=== PATIENT | female | born 1955 | race Caucasian/White ===

== ENCOUNTER 2018-01-20 08:34 | Emergency (ER) | payer BC ==
[2018-01-20 08:44] VITALS: BP 145/86
--- NOTE | 2018-01-20 09:30 | UC ---
Complaint Female HPI - HPI Summary HPI Summary: Pt is a 62 y/o F c/o increased bowel movement frequency and just does not feel right onsetting Thursday. She notes that she woke up Thursday morning with unusual increased bowel movement frequency. Assoc Sx: Increase urinary frequency, gassy , KEMP, diarrhea, chills, sore throat, brain foggy. Denies: melena, body/muscle/ joint aches, cough, chest congestion, epigastric abd pain, vaginal discharge. Pt notes Does not feel like Diveticulitis. She also says her diet has not changed much and stool has been "hemstitcher" colored. - History Of Current Complaint Chief Complaint: UCGeneralIllness Stated Complaint: HEADACHE NAUSEA DIARRHEA Time Seen by Provider: 01/20/18 09:16 Hx Obtained From: Patient Onset/Duration: Sudden Onset - Upon waking, Lasting Days Severity Currently: Mild Pain Intensity: 2 Pain Scale Used: 0-10 Numeric Associated Signs And Symptoms: Negative: Fever, Vaginal Bleeding/Discharge, Vaginal Discharge - Allergies/Home Medications Allergies/Adverse Reactions: Allergies Allergy/AdvReac Type Severity Reaction Status Date / Time ciprofloxacin [From Cipro] Allergy Rash Verified 01/20/18 08:45 metronidazole [From Flagyl] Allergy Rash Verified 01/20/18 08:45 Sulfa (Sulfonamide Allergy Rash Verified 01/20/18 08:45 Antibiotics) PMH/Surg Hx/FS Hx/Imm Hx Endocrine History: Other - Neg: DM Other Endocrine History: . Cardiovascular History: Other - Neg: HTN, CAD Other Cardiovascular History: . - Surgical History Surgical History: Yes Surgery Procedure, Year, and Place: c section 1987, rt knee , rt ankle, rt breast biopsy - Family History Known Family History: Negative: Cardiac Disease, Hypertension, Diabetes - Social History Occupation: Retired Lives: With Family Alcohol Use: Weekly Alcohol Amount: wine Substance Use Type: None Smoking Status (MU): Never Smoked Tobacco Review of Systems Constitutional: Negative, Chills ENT: Sore Throat Respiratory: Negative - Cough, C congestion Gastrointestinal: Negative - Epigastric abd pain, Diarrhea Genitourinary: Negative - Vaginal discharge, melena, Frequency - increased Musculoskeletal: Negative - Body/Muscle/Joint aches, Other: Neurological: Headache, Other - "Foggy brain" All Other Systems Reviewed And Are Negative: Yes Physical Exam - Summary Physical Exam Summary: General: well-appearing, no pain distress Skin: warm, color reflects adequate perfusion, dry Head: normal Eyes: EOMI, CHIDI ENT: normal Neck: supple, nontender Respiratory: CTA, breath sounds present Cardiovascular: RRR Abdomen: soft, nontender Bowel: present Musculoskeletal: normal, strength/ROM intact Neurological: sensory/motor intact, A&O x3 Psychological: affect/mood appropriate Triage Information Reviewed: Yes Vital Signs: Initial Vital Signs Temp 97.6 F 01/20/18 08:41 Pulse 67 01/20/18 08:41 Resp 16 01/20/18 08:41 BP 145/86 01/20/18 08:41 Pulse Ox 100 01/20/18 08:41 Vital Signs Reviewed: Yes Complaint Female Dx - Course Course Of Treatment: NO ABD PAIN. NO FEVER OR STIFF NECK. WELL APPEARANCE. CHECKING STOOL AND LYME. F/U PMD; RECHECK SOONER IF WORSE. - Differential Dx/Diagnosis Provider Diagnoses: DIARRHEA. HEADACHE Discharge - Sign-Out/Discharge Documenting (check all that apply): Patient Departure - Discharge Plan Condition: Stable Disposition: HOME Patient Education Materials: Acute Headache (ED), Acute Diarrhea (ED) Referrals: Marycarmen Castano MD [Primary Care Provider] - Additional Instructions: FOLLOW UP WITH YOUR DOCTOR. GET RECHECKED FOR ANY WORSENING OF YOUR CONDITION OR QUESTIONS OR CONCERNS. - Billing Disposition and Condition Condition: STABLE Disposition: Home
[2018-01-20 12:38] LABS: ABS Basophils 0.1 10^3/ul (0-0.2); ABS Eosinophils 0.1 10^3/ul (0-0.6); ABS Lymphocytes 1.2 10^3/ul (1.0-4.8); ABS Monocytes 0.4 10^3/ul (0-0.8); ABS Neutrophils 4.4 10^3/ul (1.5-7.7); ABS Nucleated RBC 0 10^3/ul; Eosinophil % 1.6 % (0-6); Hematocrit 42 % (35-47); Hemoglobin 13.7 g/dl (12.0-16.0); Lymphocyte % 19.8 % (25-47); Mean Corpuscular HGB Conc 33 g/dl (31-36); Mean Corpuscular Hemoglobin 29 pg (27-31); Mean Corpuscular Volume 88 fL (80-97); Mean Platelet Volume 8.4 um3 (7.4-10.4); Nucleated Red Blood Cells % 0; Platelet Count 252 10^3/ul (150-450); Red Blood Count 4.72 10^6/ul (4.00-5.40); Red Cell Distribution Width 13 % (10.5-15); White Blood Count 6.2 10^3/ul (3.5-10.8)
[2018-01-20 12:50] LABS: EGFR Non-African American 74.2 (>60)
--- NOTE | 2018-01-21 11:29 | UC ---
- Progress Note Progress Note: CBC and CMP reviewed non concerning no change vasyl 01/21/2018 Discharge - Sign-Out/Discharge Documenting (check all that apply): Post-Discharge Follow Up - Discharge Plan Condition: Stable Disposition: HOME Patient Education Materials: Acute Headache (ED), Acute Diarrhea (ED) Referrals: Marycarmen Castano MD [Primary Care Provider] - Additional Instructions: FOLLOW UP WITH YOUR DOCTOR. GET RECHECKED FOR ANY WORSENING OF YOUR CONDITION OR QUESTIONS OR CONCERNS. - Billing Disposition and Condition Condition: STABLE Disposition: Home
--- NOTE | 2018-01-21 17:43 | UC ---
- Progress Note Progress Note: neg lyme please call pt and update ljj 01/21/18 Discharge - Sign-Out/Discharge Documenting (check all that apply): Post-Discharge Follow Up - Discharge Plan Condition: Stable Disposition: HOME Patient Education Materials: Acute Headache (ED), Acute Diarrhea (ED) Referrals: Marycarmen Castano MD [Primary Care Provider] - Additional Instructions: FOLLOW UP WITH YOUR DOCTOR. GET RECHECKED FOR ANY WORSENING OF YOUR CONDITION OR QUESTIONS OR CONCERNS. - Billing Disposition and Condition Condition: STABLE Disposition: Home
== END 2018-01-20 09:55 | disposition home or self-care (01) ==
LOC: UCEAST 08:34
DX: R19.7 Diarrhea, unspecified (principal); R51 Headache; R11.0 Nausea; Z88.1 Allergy status to other antibiotic agents; Z88.2 Allergy status to sulfonamides
CPT/HCPCS: 36415; 80053; 85025; 86618; 99211; G0463

== ENCOUNTER 2018-12-21 13:59 | Emergency (ER) | payer BC, OTHER ==
[2018-12-21] MEDS ORDERED: Ondansetron INJ* 2 MG/ML VIAL IV ONE (14:11)
[2018-12-21] MEDS ORDERED: Lorazepam PYXIS KEY PRN ×2 (14:12→14:23)
[2018-12-21] MEDS ORDERED: LORazepam INJ* 2 MG/ML 1 ML VIAL IV PUSH ONE (14:12)
[2018-12-21] MEDS ORDERED: LORazepam INJ* 2 MG/ML 1 ML VIAL IM ONE (14:23)
[2018-12-21] MEDS ORDERED: Ondansetron ODT TAB* 4 MG SL ONE (14:23)
[2018-12-21] MEDS ORDERED: Ibuprofen TAB* 600 MG PO ONE (16:23)
[2018-12-21] MEDS ORDERED: Cyclobenzaprine TAB* 10 MG PO ONE (16:23)
[2018-12-21 17:00] VITALS: BP 143/74
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
== END 2018-12-21 16:59 | disposition home or self-care (01) ==
LOC: ED 13:59
DX: S16.1XXA Strain of muscle, fascia and tendon at neck level, initial encounter (principal); V49.60XA Unspecified car occupant injured in collision with unspecified motor vehicles in traffic accident, initial encounter; M50.30 Other cervical disc degeneration, unspecified cervical region; M47.892 Other spondylosis, cervical region
CPT/HCPCS: 70450; 71046; 72125; 96372; 96374; 96375; 99283; A9270-GY; J2060

== ENCOUNTER 2018-12-24 10:08 | Emergency (ER) | payer OTHER ==
[2018-12-24 10:43] VITALS: BP 145/82
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
== END 2018-12-24 13:30 | disposition home or self-care (01) ==
LOC: UCEAST 10:08
DX: S62.336A Displaced fracture of neck of fifth metacarpal bone, right hand, initial encounter for closed fracture (principal); V43.92XA Unspecified car occupant injured in collision with other type car in traffic accident, initial encounter; Y92.410 Unspecified street and highway as the place of occurrence of the external cause; R03.0 Elevated blood-pressure reading, without diagnosis of hypertension; Z88.2 Allergy status to sulfonamides
CPT/HCPCS: 99211; G0463

== ENCOUNTER 2018-12-30 09:09 | Day surgery (SDC) | payer BC, OTHER ==
[~2018-12-30 09:09] MED LIST: Buffered Lidocaine 1% SYRIN* 1 ML/SYRINGE INTRADERM ONE; Dexamethasone IV* 4 MG/ML 1 ML (4 MG) IV SLOW PU ONE; Famotidine IV* 10 MG/ML 2 ML (20 mg) IV SLOW PU ONE; Lactated Ringers 1000 ML Bag* 1,000 ML IV SCH; Sodium Citrate/Citric Acid* 15 ML UDC PO ONE
[2018-12-30] MEDS ORDERED: Dexamethasone IV* 4 MG/ML 1 ML (4 MG) ONE (09:16)
[2018-12-30] MEDS ORDERED: Famotidine IV* 10 MG/ML 2 ML (20 mg) ONE (09:16)
[2018-12-30] MEDS ORDERED: ceFAZolin 2 GM in NS PREMIX(*) 2 GM/100 ML BAG IVPB ONE (09:17)
[2018-12-30] MEDS ORDERED: Bupivacaine 0.25% SDV PF* 10 ML VIAL INJ ONE (11:12)
[2018-12-30] MEDS ORDERED: fentaNYL* 50 MCG/ML 2 ML VIAL (100 MCG VIAL) ONE (11:24)
[2018-12-30] MEDS ORDERED: Midazolam* 1 MG/ML 5 ML VIAL (5 MG) ONE (11:24)
[2018-12-30] MEDS ORDERED: Propofol* 10 MG/ML 20 ML BTL ONE (11:25)
[2018-12-30] MEDS ORDERED: Ondansetron INJ* 2 MG/ML VIAL ONE (11:25)
[2018-12-30] MEDS ORDERED: Ketorolac INJ* 30 MG/ML 1 ML VIAL ONE (11:25)
[2018-12-30] MEDS ORDERED: oxyCODONE/Acetamin 5/325 MG* TAB PO PRN (11:54)
[2018-12-30] MEDS ORDERED: Ondansetron INJ* 2 MG/ML VIAL IV PRN (11:54)
[2018-12-30] MEDS ORDERED: DiMENhydriNATE IV* 50 MG/ML VIAL IV PUSH PRN (11:54)
[2018-12-30] MEDS ORDERED: Naloxone* 0.4 MG/ML 1 ML VIAL IV PRN (11:54)
[2018-12-30 12:38] VITALS: BP 162/88
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
== END 2018-12-30 12:58 | disposition home or self-care (01) ==
LOC: OREAST 09:09
PROVIDERS: ATTEND Orthopaedic Surgery Hand Surgery
DX: S62.336A Displaced fracture of neck of fifth metacarpal bone, right hand, initial encounter for closed fracture (principal); V49.9XXA Car occupant (driver) (passenger) injured in unspecified traffic accident, initial encounter; Y92.9 Unspecified place or not applicable
CPT/HCPCS: 76000; C1776; J0690; J1100; J1885; J2250; J2405; J2704; J3010; J3490

== ENCOUNTER 2019-01-10 08:54 | Emergency (ER) | payer OTHER ==
[2019-01-10 09:14] VITALS: BP 128/69
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
== END 2019-01-10 10:38 | disposition home or self-care (01) ==
LOC: UCEAST 08:54
DX: K57.32 Diverticulitis of large intestine without perforation or abscess without bleeding (principal); Z88.1 Allergy status to other antibiotic agents; Z88.2 Allergy status to sulfonamides
CPT/HCPCS: 74176; 99212; G0463